=== PATIENT | female | born 1980 | race Two or more races ===

== ENCOUNTER 2019-06-11 03:49 | Emergency (ER) | payer SELFPAY ==
[~2019-06-11] VITALS: Ht 154.9 cm; Wt 56.2 kg
[2019-06-11] MEDS ORDERED: ACETAMINOPHEN 500 MG TAB PO ONE (06:15)
[2019-06-11 06:53] VITALS: BP 136/74
== END 2019-06-11 07:39 | disposition home or self-care (01) ==
LOC: ER 03:51
DX: S82.122A Displaced fracture of lateral condyle of left tibia, initial encounter for closed fracture (principal); Y08.89XA Assault by other specified means, initial encounter; Y93.89 Activity, other specified; Y99.8 Other external cause status; Y92.89 Other specified places as the place of occurrence of the external cause
CPT/HCPCS: 29125; 29505; 73562